=== PATIENT | female | born 1975 | race Caucasian/White ===

== ENCOUNTER → 2017-01-08 | Outpatient (CLI) | payer BC ==
--- NOTE | 2017-01-09 07:32 | MM ---
Reason for exam: additional evaluation requested from prior study. Last mammogram was performed 1 year and 1 month ago. History: Patient has history of high-risk lesion on a previous biopsy at age 40. Family history of breast cancer in maternal aunt, premenopausal breast cancer in mother, and breast cancer in aunt. High risk US biopsy breast VAD LT of the left breast, July 12, 2015. Benign stereotactic core biopsy of the left breast, March 24, 2004. Core biopsy of the left breast. Excisional biopsy of the left breast. Took hormonal contraceptives for 15 years beginning at age 17. Physical Findings: Nurse Summary: 2 x 2cm nodule in the right breast at 12 o'clock with attached 1 x 0.5cm movable palpable (nurse ts). MG 3D Diag Mammo W/Cad DDIIER Bilateral CC and MLO view(s) were taken. LM view(s) were taken of the right breast. Prior study comparison: December 21, 2015, bilateral MG 3d diag mammo w/cad DIDIER. July 12, 2015, left breast MG diagnostic mammo LT wo CAD. Finding: There are multiple varied sized nodules in the right breast consistent with possible masses or cysts. No significant changes in finding since December 21, 2015 and July 12, 2015. These results were verbally communicated with the patient and result sheet given to the patient on 01/08/17. ASSESSMENT: Incomplete: need additional imaging evaluation, BI-RAD 0 RECOMMENDATION: Ultrasound of the right breast.
--- NOTE | 2017-01-09 07:36 | USB ---
Reason for exam: additional evaluation requested from abnormal screening. History: Patient has history of high-risk lesion on a previous biopsy at age 40. Family history of breast cancer in maternal aunt, premenopausal breast cancer in mother, and breast cancer in aunt. High risk US biopsy breast VAD LT of the left breast, July 12, 2015. Benign stereotactic core biopsy of the left breast, March 24, 2004. Core biopsy of the left breast. Excisional biopsy of the left breast. Took hormonal contraceptives for 15 years beginning at age 17. US Breast RT Right breast ultrasound including all four quadrants, the retroareolar region and axilla demonstrates a 1.6 x 1.6 x 1.7cm cystic lesion at 12 o'clock, a 1.7 x 0.84 x 0.8cm cystic lesion at 1 o'clock, a 0.45 x 0.30 x 0.21cm lesion too small to characterize at 5 o'clock and a 1.18 x 0.21 x 1.16cm cystic lesion at the nipple. These results were verbally communicated with the patient and result sheet given to the patient on 01/08/17. ASSESSMENT: Probably benign, BI-RAD 3 RECOMMENDATION: Ultrasound of the right breast in 3 months. (5 o'clock)
== END | disposition home or self-care (01) ==
LOC: RADMAMWWP 14:19
PROVIDERS: ATTEND Obstetrics & Gynecology
DX: N64.52 Nipple discharge (principal); N63 Unspecified lump in breast; R92.2 Inconclusive mammogram
CPT/HCPCS: 76641; G0204; G0279

== ENCOUNTER → 2017-04-11 | Outpatient (CLI) | payer BC ==
--- NOTE | 2017-04-12 08:54 | USB ---
Reason for exam: follow-up at short interval from prior study. History: Patient has history of high-risk lesion on a previous biopsy at age 40. Family history of breast cancer in maternal aunt, premenopausal breast cancer in mother, and breast cancer in aunt. High risk US biopsy breast VAD LT of the left breast, July 12, 2015. Benign stereotactic core biopsy of the left breast, March 24, 2004. Core biopsy of the left breast. Excisional biopsy of the left breast. Took hormonal contraceptives for 15 years beginning at age 17. Physical Findings: Nurse Summary: right breast palpable 12 o'clock, movable 1 x 1.5cm, all soft, movable, patient complains of milky discharge in the right breast x 2 years (nurse ts). US Breast BILAT Right breast ultrasound includes all four quadrants, the retroareolar region and axilla. Finding demonstrates three oval, cystic lesions measuring 1.6 x 0.9 x 1.6cm at 12 o'clock, 1.6 x 1.3 x 1.6cm at 12 o'clock and 0.9 x 0.4 x 0.7cm at 10 o'clock. Left breast ultrasound includes all four quadrants, the retroareolar region and axilla. Finding demonstrates a 0.5 x 0.3 x 0.5cm oval, cystic lesion at 2 o'clock. These results were verbally communicated with the patient and result sheet given to the patient on 04/11/17. ASSESSMENT: Benign, BI-RAD 2 RECOMMENDATION: Routine screening mammogram of both breasts in 8 months. Manage patient on a clinical basis.
== END | disposition home or self-care (01) ==
LOC: RADUSWWP 14:44
PROVIDERS: ATTEND Surgery
DX: R92.8 Other abnormal and inconclusive findings on diagnostic imaging of breast (principal)

== ENCOUNTER → 2018-02-21 | Outpatient (CLI) | payer BC ==
--- NOTE | 2018-02-24 08:03 | MM ---
Reason for exam: additional evaluation requested from prior study. Last mammogram was performed 1 year and 1 month ago. History: Patient has history of high-risk lesion on a previous biopsy at age 40. Family history of breast cancer in maternal aunt, premenopausal breast cancer in mother, and breast cancer in aunt. High risk US biopsy breast VAD LT of the left breast, July 12, 2015. Benign stereotactic core biopsy of the left breast, March 24, 2004. Core biopsy of the left breast. Excisional biopsy of the left breast. Took hormonal contraceptives for 15 years beginning at age 17. Physical Findings: Nurse Summary: 1.5cm nodule in the right breast at 12 o'clock (nurse mj). MG 3D Diag Mammo W/Cad DIDIER Bilateral CC and MLO view(s) were taken. Prior study comparison: January 08, 2017, bilateral MG 3d diag mammo w/cad DIDIER. December 21, 2015, bilateral MG 3d diag mammo w/cad DIDIER. The breast tissue is extremely dense which could obscure a lesion on mammography. There is chronic nodularity bilaterally. No significant new findings when compared with previous films. These results were verbally communicated with the patient and result sheet given to the patient on 02/21/18. ASSESSMENT: Incomplete: need additional imaging evaluation, BI-RAD 0 RECOMMENDATION: Ultrasound of both breasts. Manage patient on a clinical basis.
--- NOTE | 2018-02-24 08:05 | USB ---
Reason for exam: additional evaluation requested from prior study. History: Patient has history of high-risk lesion on a previous biopsy at age 40. Family history of breast cancer in maternal aunt, premenopausal breast cancer in mother, and breast cancer in aunt. High risk US biopsy breast VAD LT of the left breast, July 12, 2015. Benign stereotactic core biopsy of the left breast, March 24, 2004. Core biopsy of the left breast. Excisional biopsy of the left breast. Took hormonal contraceptives for 15 years beginning at age 17. US Breast BILAT Right breast ultrasound includes all four quadrants, the retroareolar region and axilla. Finding demonstrates three cystic lesions measuring 1.8 x 1.0 x 1.8cm at 12 o'clock, 0.9 x 0.9 x 0.9cm at 12 o'clock and 0.9 x 0.7 x 1.0c, at 10 o'clock. Left breast ultrasound includes all four quadrants, the retroareolar region and axilla. Finding demonstrates a 0.6 x 0.6 x 0.6cm cystic lesion at 2 o'clock. These results were verbally communicated with the patient and result sheet given to the patient on 02/21/18. ASSESSMENT: Benign, BI-RAD 2 RECOMMENDATION: Follow-up diagnostic mammogram of both breasts in 1 year.
== END | disposition home or self-care (01) ==
LOC: RADMAMWWP 14:16
PROVIDERS: ATTEND Obstetrics & Gynecology
DX: R92.8 Other abnormal and inconclusive findings on diagnostic imaging of breast (principal)
CPT/HCPCS: 77066; 76641; G0279

== ENCOUNTER → 2019-03-23 | Outpatient (CLI) | payer OTHER ==
--- NOTE | 2019-03-23 10:02 | MM ---
Reason for exam: additional evaluation requested from prior study. Last mammogram was performed 1 year and 1 month ago. History: Patient has history of high-risk lesion on a previous biopsy at age 40. Family history of breast cancer in maternal aunt, premenopausal breast cancer in mother, and breast cancer in aunt. High risk US biopsy breast VAD LT of the left breast, July 12, 2015. Benign stereotactic core biopsy of the left breast, March 24, 2004. Core biopsy of the left breast. Excisional biopsy of the left breast. Took hormonal contraceptives for 15 years beginning at age 17. Physical Findings: Nurse Summary: 1.5cm nodule in the left breast at 2 o'clock (nurse mj). MG 3D Diag Mammo W/Cad DIDIER Bilateral CC and MLO view(s) were taken. Prior study comparison: February 21, 2018, bilateral MG 3d diag mammo w/cad DIDIER. January 08, 2017, bilateral MG 3d diag mammo w/cad DIDIER. The breast tissue is heterogeneously dense. This may lower the sensitivity of mammography. Previous mammotome biopsy in the left breast. Palpable marker left upper outer quadrant. Subtle 1.7cm nodularity laterally may correspond to an underlying cyst. These results were verbally communicated with the patient and result sheet given to the patient on 03/23/19. ASSESSMENT: Incomplete: need additional imaging evaluation, BI-RAD 0 RECOMMENDATION: Ultrasound of the left breast. (upper outer quadrant)
--- NOTE | 2019-03-23 10:11 | USB ---
Reason for exam: additional evaluation requested from abnormal screening. History: Patient has history of high-risk lesion on a previous biopsy at age 40. Family history of breast cancer in maternal aunt, premenopausal breast cancer in mother, and breast cancer in aunt. High risk US biopsy breast VAD LT of the left breast, July 12, 2015. Benign stereotactic core biopsy of the left breast, March 24, 2004. Core biopsy of the left breast. Excisional biopsy of the left breast. Took hormonal contraceptives for 15 years beginning at age 17. US Breast Limited LT Left limited breast ultrasound including focal area of concern, retroareolar and axilla demonstrates a 0.5 x 0.5 x 0.3cm cystic lesion with septation at 1 o'clock likely cyst cluster and a 1.0 x 0.7 x 0.7cm cystic lesion at 2 o'clock that corresponds to the palpable site, benign. Annual mammogram can be performed in diagnostic clinic. These results were verbally communicated with the patient and result sheet given to the patient on 03/23/19. ASSESSMENT: Probably benign, BI-RAD 3 RECOMMENDATION: Follow-up diagnostic mammogram of both breasts in 1 year.
== END ==
LOC: RADMAMWWP 08:13
PROVIDERS: ATTEND Obstetrics & Gynecology
DX: R92.8 Other abnormal and inconclusive findings on diagnostic imaging of breast (principal)
CPT/HCPCS: 77062; 77066

== ENCOUNTER → 2020-06-09 | Outpatient (CLI) | payer OTHER ==
--- NOTE | 2020-06-10 09:39 | MM ---
Reason for exam: additional evaluation requested from prior study. Last mammogram was performed 1 year and 3 months ago. History: Patient has history of high-risk lesion on a previous biopsy at age 40. Family history of breast cancer in maternal aunt, premenopausal breast cancer in mother, and breast cancer in aunt. High risk US biopsy breast VAD LT of the left breast, July 12, 2015. Benign stereotactic core biopsy of the left breast, March 24, 2004. Core biopsy of the left breast. Excisional biopsy of the left breast. Took hormonal contraceptives for 15 years beginning at age 17. Physical Findings: Nurse Summary: 1cm nodule in the left breast at 1 o'clock (nurse mj). MG 3D Diag Mammo W/Cad DIDIER Bilateral CC and MLO view(s) were taken. Prior study comparison: March 23, 2019, bilateral MG 3d diag mammo w/cad DIDIER. February 21, 2018, bilateral MG 3d diag mammo w/cad DIDIER. The breast tissue is heterogeneously dense. This may lower the sensitivity of mammography. Finding: There are varied sized, intermediate concern, suspicious round mass in the left breast consistent with possible cysts. These results were verbally communicated with the patient and result sheet given to the patient on 06/09/20. ASSESSMENT: Incomplete: need additional imaging evaluation, BI-RAD 0 RECOMMENDATION: Ultrasound of the left breast.
--- NOTE | 2020-06-10 09:41 | USB ---
Reason for exam: additional evaluation requested from abnormal screening. History: Patient has history of high-risk lesion on a previous biopsy at age 40. Family history of breast cancer in maternal aunt, premenopausal breast cancer in mother, and breast cancer in aunt. High risk US biopsy breast VAD LT of the left breast, July 12, 2015. Benign stereotactic core biopsy of the left breast, March 24, 2004. Core biopsy of the left breast. Excisional biopsy of the left breast. Took hormonal contraceptives for 15 years beginning at age 17. US Breast LT Left complete breast ultrasound includes all four quadrants, the retroareolar region and axilla. Finding demonstrates three oval, cystic lesion measuring 4 x 2 x 4mm at 1 o'clock, 5 x 5 x 4mm at 2 o'clock and 3 x 2 x 3mm at 6 o'clock. These results were verbally communicated with the patient and result sheet given to the patient on 06/09/20. ASSESSMENT: Benign, BI-RAD 2 RECOMMENDATION: Routine screening mammogram of both breasts in 1 year.
== END | disposition home or self-care (01) ==
LOC: RADMAMWWP 12:53
PROVIDERS: ATTEND Obstetrics & Gynecology
DX: R92.8 Other abnormal and inconclusive findings on diagnostic imaging of breast (principal); Z80.3 Family history of malignant neoplasm of breast
CPT/HCPCS: 77062; 77066

== ENCOUNTER → 2020-12-08 | Outpatient (CLI) | payer OTHER ==
[2020-12-08 09:09] LABS: Basophils % (A) 0 %; Eosinophils # (A) 0.1 k/uL (0-0.7); Eosinophils % (A) 2 %; HCT 42.1 % (34.0-46.0); Lymphocytes # (A) 1.3 k/uL (1.0-4.8); Lymphocytes % (A) 37 %; MCH 30.7 pg (25.0-35.0); MCHC 33.3 g/dL (31.0-37.0); Mean Platelet Volume 8.5; Monocytes # (A) 0.2 k/uL (0-1.0); Monocytes % (A) 6 %; Neutrophils # (A) 1.8 k/uL (1.3-7.7); Neutrophils % (A) 52 %; Platelet Count 218 k/uL (150-450); RBC 4.58 m/uL (3.80-5.40); RDW 12.5 % (11.5-15.5); WBC 3.4 k/uL (3.8-10.6)
[2020-12-08 17:27] LABS: African American GFR (CKD) 102.5 (60.0-200.0); Albumin 4.5 g/dL (3.80-4.90); Albumin/Globulin Ratio 2.5 (1.60-3.17); Anion Gap 10.5 mmol/L (4.00-12.00); BUN/Creat Ratio 26.25 Ratio (12.00-20.00); Calcium 9.1 mg/dL (8.7-10.3); Carbon Dioxide 26.5 mmol/L (21.6-31.8); Chol/HDL Ratio 3.14; Globulin 1.8 g/dL (1.6-3.3); Non-African American GFR(CKD) 88.4 (60.0-200.0); Potassium 4.4 mmol/L (3.5-5.5); Total Bilirubin 0.6 mg/dL (0.3-1.2); Total Protein 6.3 g/dL (6.2-8.2)
== END | disposition home or self-care (01) ==
LOC: LABWHC1 07:53
PROVIDERS: ATTEND Family Medicine
DX: Z00.00 Encounter for general adult medical examination without abnormal findings (principal)
CPT/HCPCS: 36415; 80053; 80061; 83036; 84443; 85025

== ENCOUNTER → 2021-02-06 | Outpatient (CLI) | payer OTHER ==
--- NOTE | 2021-02-07 10:44 | ECHOF ---
Referral Reason:R07.9 chest pain MEASUREMENTS -------- HEIGHT: 170.2 cm WEIGHT: 64.9 kg BP: RVIDd: 2.8 cm (< 3.3) IVSd: 0.7 cm (0.6 - 1.1) LVIDd: 3.9 cm (3.9 - 5.3) LVPWd: 1.0 cm (0.6 - 1.1) IVSs: 1.5 cm LVIDs: 2.0 cm LVPWs: 1.6 cm LAESV Index (A-L): 14.47 ml/m Ao Diam: 2.6 cm (2.0 - 3.7) AV Cusp: 1.9 cm (1.5 - 2.6) LA Diam: 2.5 cm (2.7 - 3.8) MV EXCURSION: 13.059 mm (> 18.000) MV EF SLOPE: 86 mm/s (70 - 150) EPSS: 0.6 cm MV E Guilherme: 1.12 m/s MV DecT: 186 ms MV A Guilherme: 0.54 m/s MV E/A Ratio: 2.08 RAP: 5.00 mmHg RVSP: 20.32 mmHg FINDINGS -------- This was a technically good study. The left ventricular size is normal. Left ventricular wall thickness is normal. Overall left vent ricular systolic function is normal with, an EF between 55 - 60 %. The diastolic filling pattern is normal for the age of the patient 11.56. The right ventricle is normal in size. The left atrial size is normal. Normal LA size by volume 22+/-6 ml/m2. The right atrial size is normal. The aortic valve is trileaflet and appears structurally normal. The mitral valve is normal. The mitral valve leaflets are mildly thickened. Mild mitral regurgita tion is present. The tricuspid valve appears structurally normal. Mild tricuspid regurgitation present. Right vent ricular systolic pressure is normal at < 35 mmHg. There is no pulmonic regurgitation present. The aortic root size is normal. Normal inferior vena cava with normal inspiratory collapse consistent with estimated right atrial pre ssure of 5 mmHg. There is no pericardial effusion. CONCLUSIONS -------- 1. The left ventricular size is normal. 2. Left ventricular wall thickness is normal. 3. Overall left ventricular systolic function is normal with, an EF between 55 - 60 %. 4. The diastolic filling pattern is normal for the age of the patient 11.56 5. The mitral valve leaflets are mildly thickened. 6. Mild mitral regurgitation is present. 7. Mild tricuspid regurgitation present. 8. There is no pulmonic regurgitation present. 9. There is no pericardial effusion. HOTEL MANAGER: Kendra Garcia RDCS
== END | disposition home or self-care (01) ==
LOC: RADECHMAIN 15:07
PROVIDERS: ATTEND Family Medicine
DX: I08.1 Rheumatic disorders of both mitral and tricuspid valves (principal)
CPT/HCPCS: 93306

== ENCOUNTER → 2022-08-01 | Outpatient (CLI) | payer OTHER ==
--- NOTE | 2022-08-01 13:42 | US ---
EXAMINATION TYPE: US pelvis complete transvag DATE OF EXAM: 08/01/2022 COMPARISON: US 2016 CLINICAL HISTORY: R10.2 PELVIC PAIN. Pelvic pain, history of endometriosis and hysterectomy TECHNIQUE: . Transabdominal sonographic images of the pelvis were acquired. Transvaginal sonographi c images were medically necessary to better assess the following anatomy: ovaries Date of LMP: 2007 EXAM MEASUREMENTS: Right Ovary: 3.6 x 2.3 x 2.5 cm Left Ovary: not seen 1. Uterus: surgically absent 2. Endometrium: surgically absent 3. Right Ovary: 2.7cm cyst 4. Left Ovary: not seen 5. Bilateral Adnexa: wnl 6. Posterior cul-de-sac: wnl IMPRESSION: Cystic lesion right ovary may be functional in nature. This could be confirmed with follow-up study i n 6 weeks.
== END | disposition home or self-care (01) ==
LOC: RADUSWWP 12:57
PROVIDERS: ATTEND Obstetrics & Gynecology
DX: N83.202 Unspecified ovarian cyst, left side (principal)
CPT/HCPCS: 76830; 76856

== ENCOUNTER → 2022-10-10 | Outpatient (CLI) | payer OTHER ==
--- NOTE | 2022-10-11 07:57 | US ---
EXAMINATION TYPE: US pelvis complete transvag DATE OF EXAM: 10/10/2022 COMPARISON: 08/01/2022 CLINICAL HISTORY: 47-year-old female RIGHT OVARIAN CYST, G89.29. TECHNIQUE: Transabdominal sonographic images of the pelvis were acquired. Transvaginal sonographic i mages were medically necessary to better assess the anatomy. FINDINGS: EXAM MEASUREMENTS: Uterus: Surgically absent Right Ovary: 3.4 x 2.3 x 2.9 cm Left Ovary: Not visualized 1. Uterus: Surgically absent 2. Endometrium: Surgically absent 3. Right Ovary: 2.3 x 1.8 x 2.2 anechoic cyst. (Previously measuring 2.7 cm) 4. Left Ovary: Not visualized 5. Bilateral Adnexa: wnl 6. Posterior cul-de-sac: wnl IMPRESSION: 1. Status post hysterectomy. Unable to visualize left ovary. 2. A left ovarian cyst is stable, perhaps minimally smaller at 2.3 cm versus 2.7 cm on 08/01/2022. Con land planner additional 3-6 month follow-up to reassess.
== END | disposition home or self-care (01) ==
LOC: RADUSWWP 15:28
PROVIDERS: ATTEND Obstetrics & Gynecology
DX: N83.202 Unspecified ovarian cyst, left side (principal); G89.29 Other chronic pain; Z90.710 Acquired absence of both cervix and uterus
CPT/HCPCS: 76830; 76856

== ENCOUNTER → 2023-04-03 | Outpatient (CLI) | payer OTHER ==
[2023-04-03 10:51] LABS: Basophils # (A) 0.01 X 10*3/uL (0.00-0.10); Basophils % (A) 0.2 %; Eosinophils # (A) 0.09 X 10*3/uL (0.04-0.35); HCT 42.1 % (37.2-46.3); HGB 14.3 g/dL (12.0-15.0); Immature Grans, Automated 0.2 %; Lymphocytes # (A) 1.54 X 10*3/uL (0.90-5.00); Lymphocytes % (A) 33.6 %; MCH 31.2 pg (27.0-32.0); MCV 91.9 fL (80.0-97.0); Mean Platelet Volume 11.3 fL (9.5-12.2); Monocytes # (A) 0.34 X 10*3/uL (0.20-1.00); Monocytes % (A) 7.4 %; NRBC Per 100 WBC 0 /100 WBCS (0.0-0.0); Neutrophils % (A) 56.6 %; Platelet Count 215 X 10*3/uL (140-440); RBC 4.58 X 10*6/uL (4.10-5.20); WBC 4.59 X 10*3/uL (4.50-10.00)
[2023-04-03 11:15] LABS: ALT 15 U/L (8-44); AST 12 U/L (13-35); African American GFR (CKD) 104.7 (60.0-200.0); Albumin 4.4 g/dL (3.8-4.9); Albumin/Globulin Ratio 2.15 (1.60-3.17); Alkaline Phosphatase 42 U/L (41-126); BUN/Creat Ratio 16.22 Ratio (12.00-20.00); Blood Urea Nitrogen 12.6 mg/dL (9.0-27.0); Calcium 9.3 mg/dL (8.7-10.3); Chloride 104 mmol/L (96-109); Chol/HDL Ratio 2.92 Ratio; Glucose 96 mg/dL (70-110); LDL Cholesterol,Calculated 125.7 mg/dL (0.0-131.0); Non-African American GFR(CKD) 90.3 (60.0-200.0); Potassium 4.4 mmol/L (3.5-5.5); Sodium 139 mmol/L (135-145); Total Protein 6.4 g/dL (6.2-8.2); VLDL Calculation 15.14 mg/dL (5.00-40.00)
== END | disposition home or self-care (01) ==
LOC: LABWHC1 07:35
PROVIDERS: ATTEND Family Medicine
DX: Z00.00 Encounter for general adult medical examination without abnormal findings (principal)
CPT/HCPCS: 36415; 80053; 80061; 83036; 84443; 85025

== ENCOUNTER → 2023-05-06 | Outpatient (CLI) | payer OTHER ==
--- NOTE | 2023-05-06 09:26 | MM ---
Reason for Exam: Clinical finding. Last mammogram was performed 1 year(s) and 2 month(s) ago. Indicated Problems: Lump or thickening of the right side (size 3) for 3 Month(s). Pain of the right side (Focal) for 3 Month(s) : 12-1 oclock. Patient History: Menarche at age 13. First Full-Term at age 19. Hysterectomy at age 32. Hormonal Contraceptives, starting at age 17 for 15 years. Excisional Biopsy on the Left side. Core Biopsy on the Left side. 07/12/2015, High risk Core Biopsy on the left side. 03/24/2004, Benign Stereotactic Core Biopsy on the left side. Mother had breast cancer, age 29. Risk Values: Traci 5 year model risk: 3.0%. NCI Lifetime model risk: 22.8%. Prior Study Comparison: 01/08/2017 Bilateral Diagnostic Mammogram, [facility]. 02/21/2018 Bilateral Diagnostic Mammogram, [facility]. 03/23/2019 Bilateral Diagnostic Mammogram, [facility] 06/09/2020 Bilateral Diagnostic Mammogram, [facility]. 02/13/2022 Bilateral Screening Mammogram, [facility]. Tissue Density: The breast tissue is heterogeneously dense. This may lower the sensitivity of mammography. Findings: Analyzed By CAD. No new suspicious mass, architectural distortion, or group of calcifications within either breast. Biopsy clips within the left breast. No significant change from prior exams. Overall Assessment: Incomplete: need additional imaging evaluation, BI-RAD 0 Management: Diagnostic Breast Ultrasound of the right breast. A clinical breast exam by your physician is recommended on an annual basis and results should be correlated with mammographic findings. This exam should not preclude additional follow-up of suspicious palpable abnormalities. Results were given to the patient verbally at the time of exam. Note on Traci scores and lifetime risk: 1. A Traci score greater than 3% is considered moderate risk. If this is the case, consider specialist referral to assess eligibility for a risk reducing agent. If overall lifetime risk for the development of breast cancer is 20% or higher, the patient may qualify for future screening with alternating mammogram and breast MRI. Electronically signed and approved by: Rohith Choi D.O.
--- NOTE | 2023-05-06 09:43 | USB ---
Reason for Exam: Clinical finding. Patient History: Menarche at age 13. First Full-Term at age 19. Hysterectomy at age 32. Hormonal Contraceptives, starting at age 17 for 15 years. Excisional Biopsy on the Left side. Core Biopsy on the Left side. 07/12/2015, High risk Core Biopsy on the left side. 03/24/2004, Benign Stereotactic Core Biopsy on the left side. Mother had breast cancer, age 29. Risk Values: Traci 5 year model risk: 3.0%. NCI Lifetime model risk: 22.8%. Technique: Method: Targeted. Prior Study Comparison: 03/23/2019 Bilateral Diagnostic Mammogram, [facility]. 06/09/2020 Bilateral Diagnostic Mammogram, [facility]. 02/13/2022 Bilateral Screening Mammogram, [facility]. Findings: The upper section of the breast of the right breast, the area of palpable concern of the right breast and the axilla of the right breast were scanned. Targeted ultrasound of the right breast at 11-1 o'clock was performed additional evaluation of the axilla. No solid or cystic masses identified. Overall Assessment: Negative, BI-RAD 1 Management: Screening Mammogram of both breasts in 1 year. A clinical breast exam by your physician is recommended on an annual basis and results should be correlated with mammographic findings. This exam should not preclude additional follow-up of suspicious palpable abnormalities. Results were given to the patient verbally at the time of exam. Electronically signed and approved by: Rohith Choi D.O.
== END | disposition home or self-care (01) ==
LOC: RADMAMWWP 08:52
PROVIDERS: ATTEND Obstetrics & Gynecology
DX: N63.10 Unspecified lump in the right breast, unspecified quadrant (principal); Z80.3 Family history of malignant neoplasm of breast
CPT/HCPCS: 77062; 77066

== ENCOUNTER → 2024-01-03 | Day surgery (SDC) | payer OTHER ==
[2023-12-31 09:53] VITALS: BMI 24.3
[~2024-01-03] MED LIST: LIDOCAINE 1% INJ 10MG/ML (20 ML MDV) ONE; MIDAZOLAM 2 MG/2 ML VIAL IV PRN; MIDAZOLAM 2 MG/2 ML VIAL ONE; PROPOFOL 10 MG/ML 20 ML VIAL IV ONE; fentaNYL (PF) 50 MCG/ML 2 ML AMP ONE
[2024-01-03 10:29] VITALS: RESP 16
[2024-01-03] MEDS: SCOPOLAMINE 1 MG/72 HR PATCH TRANSDERM ONE (10:43)
[2024-01-03] MEDS: DEXAMETHASONE SOD PHOSPHATE 4 MG/ML 1 ML VIAL IV ONE (10:43)
[2024-01-03] MEDS: ONDANSETRON 4 MG/2 ML VIAL IVP ONE (10:43)
[2024-01-03] MEDS: LACTATED RINGERS 1,000 ML IV SCH (10:44)
[2024-01-03] MEDS: BUPIVACAINE (PF) 0.25% 30 ML VIAL SQ ONE (12:32)
[2024-01-03] MEDS: HYDROmorphone 0.5 MG/0.5 ML SYRINGE IVP PRN (13:15)
--- NOTE | 2024-01-03 13:22 | P.OP ---
Date of Procedure: 01/03/24 Preoperative Diagnosis: Hallux rigidus right foot Postoperative Diagnosis: Same Procedure(s) Performed: Cheilectomy first metatarsal phalangeal joint right foot Implants: None Anesthesia: MADALYNA Surgeon: Sam Bateman Estimated Blood Loss (ml): 1 Pathology: none sent Condition: stable Disposition: PACU Description of Procedure: The patient was brought into the operating room placed on table in the supine position. Timeout was taken to confirm correct patient identifiers, correct laterality of surgery, and correct procedure. Once all staff in the room were in agreement the Timeout, the patient was placed under general anesthesia. A well-padded tourniquet was placed on the ankle and then 20 mL of 0.25% Marcaine was injected as an ankle block. The right foot was then prepped and draped in usual manner. The foot was exsanguinated with an Esmarch bandage and then the tourniquet was inflated to 250 mmHg. Attention was directed over the dorsal medial aspect of the first metatarsal phalangeal joint. A linear incision was made between the neurovascular structures and the long extensor tendon. The incision was deepened down to the subcutaneous tissue careful to identify, avoid, and retract any neurovascular structures and cauterize any bleeding vessels. The subcutaneous layer was dissected free from the surrounding capsule medial medial and lateral. A linear capsular incision was made medial to the long extensor tendon. The capsular and periosteal tissues were reflected from the osseous attachments of the first metatarsal head as well as the base of the proximal phalanx. A Nayan was used to remove dorsal osteophytes of the base of the proximal phalanx. Then the joint was distracted so that the articular cartilage of the first metatarsal head could be inspected. There was greater than 50% full-thickness loss of articular cartilage mainly focused on the lateral aspect of the first metatarsal head. There was thinning on the medial aspect, however there was no fraying of the cartilage. A sagittal saw was used to resect the dorsal, medial, and lateral osteophytes from the first metatarsal head. All roughened edges of bone were smoothed with a hand rasp. A 0.045 inch K wire was used to fenestrate the area of full thickness cartilage loss on the first metatarsal head area and the wound is thoroughly irrigated with antibiotic saline. The capsule was repaired wit 0 Vicryl. Subcutaneous closure was done with 4-0 Monocryl and skin closure was done with 4-0 Stratafix in a running subcuticular manner. Dermal glue was applied over the incision. Steri-Strips are placed over the incision. Nonadherent gauze and a dry sterile dressing applied to the foot. The tourniquet was released and capillary refill return to all digits on the foot. The patient tolerated above procedure and anesthesia well. Patient went to recovery vital signs stable.
[2024-01-03 13:40] VITALS: TEMP 97.2
[2024-01-06 07:50] VITALS: BP 120/80; PULSE 78
== END | disposition home or self-care (01) ==
LOC: OR 09:57
PROVIDERS: ATTEND Podiatrist
DX: M20.21 Hallux rigidus, right foot (principal); Z88.8 Allergy status to other drugs, medicaments and biological substances; Z88.1 Allergy status to other antibiotic agents
CPT/HCPCS: 28289; J1100; J0690; J2405; J1170; J0665

== ENCOUNTER → 2024-03-12 | Outpatient (CLI) | payer OTHER ==
[2024-03-12 14:24] LABS: Basophils # (A) 0.01 X 10*3/uL (0.00-0.10); Basophils % (A) 0.1 %; Eosinophils # (A) 0.01 X 10*3/uL (0.04-0.35); Eosinophils % (A) 0.1 %; HCT 42.6 % (37.2-46.3); HGB 14.1 g/dL (12.0-15.0); Lymphocytes # (A) 1.46 X 10*3/uL (0.90-5.00); MCH 30.8 pg (27.0-32.0); MCHC 33.1 g/dL (32.0-37.0); Mean Platelet Volume 11.3 FL (9.5-12.2); Monocytes # (A) 0.54 X 10*3/uL (0.20-1.00); Monocytes % (A) 6.3 %; NRBC Per 100 WBC 0 X 10*3/uL (0.00-0.01); Neutrophils # (A) 6.56 X 10*3/uL (1.80-7.70); Neutrophils % (A) 76.2 %; Platelet Count 275 X 10*3/uL (140-440); RBC 4.58 X 10*6/uL (4.10-5.20); RDW 12.5 % (11.5-14.5); WBC 8.61 X 10*3/uL (4.50-10.00)
[2024-03-12 14:52] LABS: Thyroid Peroxidase Antibodies 11.6 U/mL (0.0-33.0)
[2024-03-12 15:07] LABS: ALT 22 U/L (8-44); AST 15 U/L (13-35); Albumin 4.7 g/dL (3.8-4.9); Albumin/Globulin Ratio 1.96 Ratio (1.60-3.17); Alkaline Phosphatase 63 U/L (41-126); BUN/Creat Ratio 23.43 Ratio (12.00-20.00); Blood Urea Nitrogen 16.4 mg/dL (9.0-27.0); Calcium 9.5 mg/dL (8.7-10.3); Carbon Dioxide 27.6 mmol/L (21.6-31.8); Chloride 101 mmol/L (96-109); Chol/HDL Ratio 2.89 Ratio; Globulin 2.4 g/dL (1.6-3.3); Glucose 102 mg/dL (70-110); LDL Cholesterol,Calculated 146.3 mg/dL (0.0-131.0); Potassium 4.6 mmol/L (3.5-5.5); Sodium 139 mmol/L (135-145); T4, Free (Free Thyroxine) 0.94 ng/dL (0.80-1.80); Total Bilirubin 0.2 mg/dL (0.3-1.2); Total Protein 7.1 g/dL (6.2-8.2)
[2024-03-12 16:05] LABS: Follicle Stimulating Hormone 11.7 mIU/mL; Luteinizing Hormone 5.6 mIU/mL
[2024-03-12 21:13] LABS: Insulin Level 11.3 mIU/mL (3.0-25.0)
== END | disposition home or self-care (01) ==
LOC: LABWHC1 07:28
PROVIDERS: ATTEND Family Medicine
DX: Z00.00 Encounter for general adult medical examination without abnormal findings (principal); Z13.1 Encounter for screening for diabetes mellitus; R63.5 Abnormal weight gain; R53.83 Other fatigue
CPT/HCPCS: 36415; 80053; 80061; 82306; 82607; 82746; 83001; 83002; 83036; 83525; 84439; 84443; 84480; 85025; 86376; 86800

== ENCOUNTER 2024-07-10 10:18 | Day surgery (SDC) | payer OTHER ==
[2024-07-10] MEDS: ONDANSETRON 4 MG/2 ML VIAL IVP ONE (11:06)
[2024-07-10] MEDS: SCOPOLAMINE 1 MG/72 HR PATCH TRANSDERM ONE (11:07)
[2024-07-10] MEDS: DEXAMETHASONE SOD PHOSPHATE 4 MG/ML 1 ML VIAL IV ONE (11:07)
[2024-07-10] MEDS: LACTATED RINGERS 1,000 ML IV SCH (11:07)
[2024-07-10] MEDS: IV FLUID CONTINUATION 1,000 ML IV ONE (11:11)
[2024-07-10] MEDS: MIDAZOLAM 2 MG/2 ML VIAL IV PRN (11:16)
[2024-07-10] MEDS ORDERED: MIDAZOLAM 2 MG/2 ML VIAL ONE (11:44)
[2024-07-10] MEDS ORDERED: LIDOCAINE 1% INJ 10MG/ML (20 ML MDV) ONE (11:44)
[2024-07-10] MEDS ORDERED: ePHEDrine 50 MG/ML 1 ML VIAL ONE (11:44)
[2024-07-10] MEDS ORDERED: WATER FOR INJECTION, STERILE 10 ML VIAL IV ONE (11:44)
[2024-07-10] MEDS ORDERED: PROPOFOL 10 MG/ML 20 ML VIAL IV ONE (11:44)
[2024-07-10] MEDS ORDERED: fentaNYL (PF) 50 MCG/ML 2 ML AMP ONE (11:44)
[2024-07-10] MEDS: BUPIVACAINE (PF) 0.25% 30 ML VIAL SQ ONE (12:00)
[2024-07-10] MEDS: LACTATED RINGERS 1,000 ML IV ONE (12:39)
--- NOTE | 2024-07-10 12:52 | P.OP ---
Date of Procedure: 07/10/24 Preoperative Diagnosis: hallux rigidus right foot Postoperative Diagnosis: same Procedure(s) Performed: first metatarsal-phalangeal joint implant artrhoplasty right foot Implants: 3.5mm offset/1.5 mm thickness Arthrosurface first metatarsal head resurfacing implant Anesthesia: NBA Surgeon: Sam Bateman Estimated Blood Loss (ml): 1 Pathology: none sent Condition: stable Disposition: PACU Description of Procedure: The patient was brought into the operating room and placed on table supine position. Timeout was taken to confirm correct patient identifiers, correct laterally surgery, and correct procedure. When all staff in the room were in agreement the timeout, the patient was induced and placed under general anesthesia. A well-padded tourniquet was placed on the ankle and then 20 mL of 0.25% Marcaine was injected as an ankle block. The foot was then prepped and draped in the usual manner. The foot was exsanguinated and the tourniquet inflated to 250 mmHg. Attention was directed over the dorsomedial aspect of the first metatarsal phalangeal joint, where a linear incision was made between the long extensor tendon and the neurovascular structures. The incision was deepened down to the subcutaneous tissue careful to identify, avoid, and retract any neurovascular structures and cauterize any bleeding vessels. Blunt dissection was then carried down to the periosteum and capsule around the first metatarsal phalangeal joint. A linear periosteal and capsular incision was made medial to the extensor tendon. The periosteal and capsular tissues were reflected from the osseous attachments of the first metatarsal head and base of the proximal phalanx. Visual inspection of the articular surface of the first metatarsal head showed greater than 50% full-thickness erosion of the articular cartilage and thinning of the remainder cartilage with fraying on the plantar aspect. A sagittal saw was used to resect the osteophytes of the dorsal aspect of the first metatarsal head but not aggressively so I did not disrupt the bony foundation for the implant placement. Guidewires placed in the central aspect of the first metatarsal head and, under fluoroscopy, guided in the first metatarsal shaft parallel to the long axis. Once the pin was properly positioned the reamer was inserted and taken down to proper depth. The tap was inserted and taken down to the laser line when aligned up with the articular cartilage surface. Then the implant was inserted it was taken down to the laser line at the articular surface and then advanced 1 additional millimeter for decompression. The reamer was placed over the guidewire and then activated and advanced until it stopped on the implant. The trial was placed and showed proper fit. There was increased range of motion the first metatarsal phalangeal joint. The sesamoid apparatus glided normally with dorsiflexion of the first metatarsal phalangeal joint. With the trial implants still in place the excessive bone medially laterally and plantarly was resected carefully so as not to disrupt the shelf of bone with the implant would sit. Once completed the trial was removed and the area thoroughly irrigated with antibiotic saline. The joint implant was then positioned and placed into the anchor. And then impacted into place. Fluoroscopy was then taken that show the implant properly aligned. A lateral view was also done with the first metatarsal phalangeal joint maximally dorsiflexed to show how much motion was available. The wound is then thoroughly irrigated with antibiotic saline. The capsule was repaired with 0 Vicryl. Subcu closure was done with 3-0 Monocryl. And skin closure was done with 4-0 Stratafix in a running subcuticular manner. Dermal glue was placed over the incision and allowed to dry. Steri-Strips were then applied across incision. An Arthrex jumpstart dressing was applied over the incision and then a dry sterile dressing applied to the foot. The tourniquet was released and capillary refill return to all digits on the left foot. The patient tolerated the above procedure and anesthesia well. Patient left the operating room to recovery with vital signs stable
[2024-07-10] MEDS: HYDROmorphone 0.5 MG/0.5 ML SYRINGE IVP PRN (13:01)
[2024-07-10 13:37] VITALS: TEMP 97.6
[2024-07-10 14:06] VITALS: RESP 18
[2024-07-10 14:41] VITALS: BP 122/79; PULSE 84
== END 2024-07-10 14:42 | disposition home or self-care (01) ==
LOC: OR 10:18
PROVIDERS: ATTEND Podiatrist
DX: M20.21 Hallux rigidus, right foot

== ENCOUNTER → 2024-10-22 | Outpatient (CLI) | payer OTHER | END | disposition home or self-care (01) | LOC: LABWHC1 13:12 | PROVIDERS: ATTEND Podiatrist | DX: Z48.89 Encounter for other specified surgical aftercare (principal) | CPT/HCPCS: 36415; 85652; 86140 ==

== ENCOUNTER → 2024-10-29 | Outpatient (CLI) | payer OTHER ==
--- NOTE | 2024-10-29 10:35 | CT ---
EXAMINATION TYPE: CT foot RT wo con DATE OF EXAM: 10/29/2024 COMPARISON: None CLINICAL INDICATION: Female, 49 years old with history of Z48.89 ENCOUNTER FOR OTHER SPECIFIED SURGIC AL AFTE; PHH, right foot pain CT DLP: 181.3 mGycm Automated exposure control for dose reduction was used. FINDINGS: There is evidence of a joint replacement surgery level first MTP with severe metallic artifact limiti ng assessment. Remaining osseous structures intact. Joint spaces preserved. There is no obvious destructive changes. No obvious fluid collection within the soft tissues. There is subcutaneous edema along the first digi t. IMPRESSION: LIMITED EXAM DUE TO ARTIFACT FROM THE SURGICAL CHANGES OF THE FIRST DIGIT. NO OBVIOUS DESTRUCTIVE SHAINA NGES. THERE IS A SMALL AMOUNT OF SOFT TISSUE EDEMA OR FLUID WITH REGARD TO THE FOOT GREATEST ALONG TH E FIRST DIGIT. IF THERE IS CONCERN FOR INFECTION OR LOOSENING CORRELATE WITH TRIPLE PHASE BONE SCAN A S CLINICALLY WARRANTED.. [facility], , 10/29/2024 10:33 AM
== END | disposition home or self-care (01) ==
LOC: RADCTMAIN 08:20
PROVIDERS: ATTEND Podiatrist
DX: Z48.89 Encounter for other specified surgical aftercare (principal); R60.0 Localized edema

== ENCOUNTER → 2025-01-12 | Outpatient (CLI) | payer OTHER ==
--- NOTE | 2025-01-12 18:13 | MM ---
Reason for Exam: Screening (asymptomatic). Last mammogram was performed 1 year(s) and 9 month(s) ago. Patient History: Menarche at age 13. First Full-Term at age 19. Hysterectomy at age 32. Premenopausal. Hormonal Contraceptives, starting at age 17 for 15 years. Excisional Biopsy on the Left side. Core Biopsy on the Left side. 07/12/2015, High risk Core Biopsy on the left side. 03/24/2004, Benign Stereotactic Core Biopsy on the left side. Maternal aunt had breast cancer, age 61. Mother had breast cancer, age 29. Risk Values: Traci 5 year model risk: 2.5%. NCI Lifetime model risk: 21.7%. Prior Study Comparison: 06/09/2020 Bilateral Diagnostic Mammogram, [facility]. 02/13/2022 Bilateral Screening Mammogram, [facility]. 05/06/2023 Bilateral MG 3D diag mammo w/cad [facility], [facility]. Tissue Density: The breasts are heterogeneously dense, which may obscure small masses. Findings: Analyzed By CAD. Possible partially obscured nodularity posterior lateral aspect of the right breast CC view. Possible superimposition shadow though incompletely disbursement 3-D images. No clear correlate on the MLO view. Further evaluation recommended. Otherwise, similar postsurgical changes left breast. Overall Assessment: Incomplete: need additional imaging evaluation, BI-RAD 0 Management: Special View Mammogram of the right breast. [facility] will attempt to contact patient to return for supplemental views and ultrasound if indicated. SEE NOTE BELOW IN REGARDS TO THE PATIENT'S INCREASED LIFETIME RISK SCORE. Note on Traci scores and lifetime risk: 1. A Traci score greater than 3% is considered moderate risk. If this is the case, consider specialist referral to assess eligibility for a risk reducing agent. 2. If overall lifetime risk for the development of breast cancer is 20% or higher, the patient may qualify for future screening with alternating mammogram and breast MRI. [facility], , 01/12/2025 6:09 PM. Electronically signed and approved by: Carl Bunn M.D. Radiologist
== END | disposition home or self-care (01) ==
LOC: RADMAMWWP 13:47
PROVIDERS: ATTEND Obstetrics & Gynecology
DX: Z12.31 Encounter for screening mammogram for malignant neoplasm of breast (principal); R92.333 Mammographic heterogeneous density, bilateral breasts; Z80.3 Family history of malignant neoplasm of breast
CPT/HCPCS: 77063; 77067

== ENCOUNTER → 2025-01-14 | Outpatient (CLI) | payer OTHER ==
--- NOTE | 2025-01-14 15:20 | MM ---
Reason for Exam: Additional evaluation requested from abnormal screening. Last screening mammogram was performed less than 1 month ago. Patient History: Menarche at age 13. First Full-Term at age 19. Hysterectomy at age 32. Premenopausal. Hormonal Contraceptives, starting at age 17 for 15 years. Excisional Biopsy on the Left side. Core Biopsy on the Left side. 07/12/2015, High risk Core Biopsy on the left side. 03/24/2004, Benign Stereotactic Core Biopsy on the left side. Maternal aunt had breast cancer, age 61. Mother had breast cancer, age 29. Risk Values: Traci 5 year model risk: 2.5%. NCI Lifetime model risk: 21.7%. Tissue Density: Right: The breasts are heterogeneously dense, which may obscure small masses. Findings: Analyzed By CAD. Nodularity posterior outer aspect of the right breast on the CC view appears low density and circumscribed on the spot 3-D CC view but is not clearly seen on the 3-D XCCL view. Not identified on the true lateral view. Further ultrasound evaluation recommended. Overall Assessment: Incomplete: need additional imaging evaluation, BI-RAD 0 Management: Diagnostic Breast Ultrasound of the right breast. [facility], , 01/14/2025 3:18 PM. Electronically signed and approved by: Carl Bunn M.D. Radiologist
--- NOTE | 2025-01-14 15:42 | USB ---
Reason for Exam: Additional evaluation requested from abnormal screening. Patient History: Menarche at age 13. First Full-Term at age 19. Hysterectomy at age 32. Premenopausal. Hormonal Contraceptives, starting at age 17 for 15 years. Excisional Biopsy on the Left side. Core Biopsy on the Left side. 07/12/2015, High risk Core Biopsy on the left side. 03/24/2004, Benign Stereotactic Core Biopsy on the left side. Maternal aunt had breast cancer, age 61. Mother had breast cancer, age 29. Risk Values: Traci 5 year model risk: 2.5%. NCI Lifetime model risk: 21.7%. Technique: Method: Targeted. Prior Study Comparison: 02/13/2022 Bilateral Screening Mammogram, [facility]. 05/06/2023 Bilateral MG 3D diag mammo w/cad [facility], [facility]. 01/12/2025 Bilateral MG 3D screening mammo w/cad, [facility]. Findings: The lateral section of the breast of the right breast, the axilla of the right breast and the retroareolar of the right breast were scanned. Ultrasound lateral aspect 7:00 to 11:00 including scanning of the subareolar region and axilla. Dense tissues are present throughout. No solid or cystic lesion or axillary adenopathy.. Overall Assessment: Probably benign, BI-RAD 3 Management: Diagnostic Mammogram of the right breast in 6 months. See note below in regards to the patient's increased lifetime risk score. A clinical breast exam by your physician is recommended on an annual basis and results should be correlated with mammographic findings. This exam should not preclude additional follow-up of suspicious palpable abnormalities. Results were given to the patient verbally at the time of exam. Note on Traci scores and lifetime risk: 1. A Traci score greater than 3% is considered moderate risk. If this is the case, consider specialist referral to assess eligibility for a risk reducing agent. 2. If overall lifetime risk for the development of breast cancer is 20% or higher, the patient may qualify for future screening with alternating mammogram and breast MRI. [facility], , 01/14/2025 3:39 PM. Electronically signed and approved by: Carl Bunn M.D. Radiologist
== END | disposition home or self-care (01) ==
LOC: RADMAMWWP 14:54
PROVIDERS: ATTEND Obstetrics & Gynecology
DX: R92.333 Mammographic heterogeneous density, bilateral breasts (principal); Z80.3 Family history of malignant neoplasm of breast; Z92.0 Personal history of contraception
CPT/HCPCS: 77061; 77065